=== PATIENT | female | born 1970 | race Two or more races ===

== ENCOUNTER 2019-07-28 09:46 | Emergency (ER) | payer MEDICAID, OTHER ==
[~2019-07-28] VITALS: Ht 165.1 cm; Wt 67.6 kg
--- NOTE | 2019-07-28 09:53 | NUR ---
PT BIB SON, FROM HOME C/O BODY PAIN SINCE YESTERDAY, PT IS AAOX4, NOT IN RESPIRATORY DISTRESS, V/S STABLE, KEPT RESTED AND COMFORTABLE, WILL CONTINUE TO MONITOR.
--- NOTE | 2019-07-28 09:57 | NUR ---
URINE SPECIMEN COLLECTED AND SENT TO LAB.
--- NOTE | 2019-07-28 10:35 | NUR ---
SEEN AND EXAMINED BY .
[2019-07-28 10:38] LABS: APPEARANCE,URINE Clear (CLEAR); BILIRUBIN,URINE Negative (NEGATIVE); BLOOD, URINE Negative Ery/uL (NEGATIVE); COLOR,URINE Yellow (YELLOW); KETONES,URINE Negative (NEGATIVE); LEUKOCYTE ESTERASE ,URINE Negative (NEGATIVE); NITRITE, URINE Negative (NEGATIVE); PH,URINE 5.5 (5.0-8.0); PROTEIN,URINE Negative (NEGATIVE); UGLUCOSE Negative (NEGATIVE); UROBILINOGEN,URINE 0.2 EU/dL (0.2)
[2019-07-28] MEDS: IV NS 0.9% 1,000 ML BAG IV ONE (10:42)
--- NOTE | 2019-07-28 10:42 | NUR ---
IV LINE ESTABLISHED, BLOOD DRAWNED AND SENT TO LAB.
[2019-07-28 10:43] LABS: BASOPHILS % (AUTO) 0.2 % (0.0-2.0); EOSINOPHILS % (AUTO) 2.2 % (0.0-6.0); HEMATOCRIT 39 % (33-45); LYMPHOCYTES # (AUTO) 0.8 /CMM (0.8-4.8); LYMPHOCYTES % (AUTO) 11.5 % (20.0-44.0); MEAN CORPUSCULAR HGB CONC 34 g/dl (31.0-36.0); MEAN CORPUSCULAR VOLUME 80 fL (82-100); MONOCYTES # (AUTO) 0.3 /CMM (0.1-1.30); MONOCYTES % (AUTO) 4.2 % (2.0-12.0); NEUTROPHILS # (AUTO) 5.7 /CMM (1.8-8.9); NEUTROPHILS % (AUTO) 81.9 % (43.0-81.0); PLATELET COUNT (AUTO) 303 /CMM (150-450); RED BLOOD CELL COUNT(AUTO) 4.85 MIL/uL (4.0-5.2); WHITE BLOOD COUNT (AUTO) 6.9 K/uL (4.3-11.0)
[2019-07-28 10:51] LABS: CALCIUM, SERUM 8.5 mg/dL (8.5-10.1); CREATININE 0.9 mg/dL (0.6-1.3); POTASSIUM 4.1 mmol/L (3.5-5.1)
[2019-07-28 10:57] LABS: BILIRUBIN,DIRECT 0.1 mg/dL (0.0-0.2); BILIRUBIN,TOTAL 0.6 mg/dL (0.2-1.0); TOTAL PROTEIN, SERUM 7.7 g/dL (6.4-8.2)
[2019-07-28 11:58] VITALS: BP 128/70
--- NOTE | 2019-07-28 11:59 | NUR ---
Patient discharged to home in stable condition. Written and verbal after care instructions given. Patient verbalizes understanding of instruction.IV removed. Catheter intact and site benign. Pressure and 4x4 applied to site. No bleeding noted.
== END 2019-07-28 11:59 | disposition home or self-care (01) ==
LOC: ER 09:46
DX: R19.7 Diarrhea, unspecified (principal)
CPT/HCPCS: 36415; 80048; 80076; 81001; 83605; 83690; 85025; 96360; 99283; J7030; 81000-TC

== ENCOUNTER 2025-05-26 11:31 | Emergency (ER) | payer OTHER ==
[~2025-05-26] VITALS: Ht 162.6 cm; Wt 68.0 kg
[2025-05-26] MEDS ORDERED: KETOROLAC TROMETHAMINE 15 MG/ML VIAL ONE (15:05)
[2025-05-26] MEDS ORDERED: IBUP-1490 PO (15:10)
[2025-05-26] MEDS ORDERED: METH4TAB17 PO (15:10)
[2025-05-26] MEDS: KETOROLAC TROMETHAMINE 15 MG/ML VIAL IM ONE (15:15)
[2025-05-26 15:18] LABS: PREGNANCY TEST URINE QUAL NEGATIVE (NEGATIVE)
[2025-05-26 15:21] VITALS: BP 150/75; TEMP 98.5; O2SAT 98
== END 2025-05-26 15:14 | disposition home or self-care (01) ==
LOC: ER 11:44
DX: M48.02 Spinal stenosis, cervical region (principal); M54.12 Radiculopathy, cervical region
CPT/HCPCS: 99285; 72125; 96372; 73030; 84703; J1885